=== PATIENT | female | born 1985 | race African-American/Black ===

== ENCOUNTER 2020-11-12 19:51 | Emergency (ER) | payer MEDICAID ==
[~2020-11-12] VITALS: Ht 152.4 cm; Wt 79.5 kg
[2020-11-12 21:47] VITALS: BP 184/122
[2020-11-12] MEDS ORDERED: BACI1PAC4 TP (21:55)
--- NOTE | 2020-11-12 21:57 | PHYS DOC ---
General Adult EDM: Chief Complaint: BURN/SMOKE INHALATION HPI: HPI: Patient is a 34 year old female who [facility] and it splattered on her bilateral inner thighs. She has a egg sized area bilateral inner thighs with some blistering. Patient rates her pain a 10 out of 10 and states it is burning. She is a history of January with Covid,, 3 vaginal births. Review of Systems: Review of Systems: Constitutional: Denies fever or chills. [] Eyes: Denies change in visual acuity. [] HENT: Denies nasal congestion or sore throat. [] Respiratory: Denies cough or shortness of breath. [] Cardiovascular: Denies chest pain or edema. [] GI: Denies abdominal pain, nausea, vomiting, bloody stools or diarrhea. [] : Denies dysuria. [] Musculoskeletal: Denies back pain or joint pain. + Bilateral inner thigh pain [] Integument: Denies rash. + Burn to bilateral inner thigh [] Neurologic: Denies headache, focal weakness or sensory changes. [] Endocrine: Denies polyuria or polydipsia. [] Lymphatic: Denies swollen glands. [] Psychiatric: Denies depression or anxiety. [] Heart Score: C/O Chest Pain: No Risk Factors: Risk Factors: DM, Current or recent (<one month) smoker, HTN, HLP, family history of CAD, obesity. Risk Scores: Score 0 - 3: 2.5% MACE over next 6 weeks - Discharge Home Score 4 - 6: 20.3% MACE over next 6 weeks - Admit for Clinical Observation Score 7 - 10: 72.7% MACE over next 6 weeks - Early Invasive Strategies Physical Exam: PE: Constitutional: Well developed, well nourished, no acute distress, non-toxic appearance. [] HENT: Normocephalic, atraumatic, bilateral external ears normal, oropharynx moist, no oral exudates, nose normal. [] Eyes: PERRLA, EOMI, conjunctiva normal, no discharge. [] Neck: Normal range of motion, no tenderness, supple, no stridor. [] Cardiovascular:Heart rate regular rhythm, no murmur [] Lungs & Thorax: Bilateral breath sounds clear to auscultation [] Abdomen: Bowel sounds normal, soft, no tenderness, no masses, no pulsatile masses. [] Skin: Warm, dry, no erythema, no rash. Bilateral inner thigh round egg sized burn that is blistered. Blisters intact. [] Back: No tenderness, no CVA tenderness. [] Extremities: No tenderness, no cyanosis, no clubbing, ROM intact, no edema. [] Neurologic: Alert and oriented X 3, normal motor function, normal sensory function, no focal deficits noted. [] Psychologic: Affect normal, judgement normal, mood normal. [] EKG: EKG: [] Radiology/Procedures: Radiology/Procedures: [] Course & Med Decision Making: Course & Med Decision Making Pertinent Labs and Imaging studies reviewed. (See chart for details) See HPI. Alert and oriented x4. Ambulatory steady gait. Skin pink warm and dry. Approximately an egg sized blister to bilateral inner thighs with blisters intact and some redness. Areas are a mix of stage I and II. She will be given a tetanus shot. Speaks in full clear sentences. Bacitracin is put on and dorsey are covered. [] Dragon Disclaimer: Dragon Disclaimer: This electronic medical record was generated, in whole or in part, using a voice recognition dictation system. Departure Departure Impression: Primary Impression: Burn Disposition: 01 HOME / SELF CARE / HOMELESS Condition: STABLE Referrals: NO PCP (PCP) Patient Instructions: Burn Care Additional Instructions: Do not pop the blisters. Follow-up with your primary care doctor. Watch for signs of infection. Keep clean and covered. Ibuprofen for pain. Scripts Bacitracin (BACITRACIN) 1 Each Packet 1 PACKET TP ONCE for 30 Days, #30 PACKET 0 Refills Prov: JANESSA ABBOTT APRN 11/12/20 JANESSA ABBOTT APRN Nov 12, 2020 21:57
[2020-11-12] MEDS ORDERED: BACITRACIN TOPICAL OINT PACKET. TP ONE (22:30)
[2020-11-12] MEDS ORDERED: DIPH,PERTUSS(ACELL),TET VAC/PF 0.5 ML SYRINGE. VAX IM ONE (22:30)
== END 2020-11-12 22:21 | disposition home or self-care (01) ==
LOC: ER 19:51
DX: T24.212A Burn of second degree of left thigh, initial encounter (principal); T24.211A Burn of second degree of right thigh, initial encounter; X10.1XXA Contact with hot food, initial encounter; Y93.89 Activity, other specified; Y92.89 Other specified places as the place of occurrence of the external cause; Y99.8 Other external cause status
CPT/HCPCS: 90471; 90715; 99283-25